=== PATIENT | male | born 1950 | race African-American/Black ===

== ENCOUNTER 2017-01-28 04:14 | Emergency (ER) | payer OTHER, MEDICAID ==
[~2017-01-28] VITALS: Ht 162.6 cm; Wt 78.0 kg
[2017-01-28 04:24] VITALS: BP 165/111
--- NOTE | 2017-01-28 04:28 | NUR ---
PT TAKEN TO BED 7
--- NOTE | 2017-01-28 04:35 | NUR ---
Dr. Pena evaluating patient at bedside.
[2017-01-28] MEDS ORDERED: INSULIN HUMAN REGULAR 100 UNITS/ML 10 ML VIAL IVP ONE (04:40)
[2017-01-28] MEDS ORDERED: NACL 0.9% 1,000 ML IV ONE (04:40)
[2017-01-28 04:57] LABS: BASOPHILS # (AUTO) 0.3 K/uL (0.00-0.22); BASOPHILS % (AUTO) 4.6 % (0.0-2.0); EOSINOPHILS # (AUTO) 0.3 K/uL (0-0.4); HEMATOCRIT 44.2 % (36-52); HEMOGLOBIN 14.3 g/dL (12.0-18.0); LYMPHOCYTES # (AUTO) 1.6 K/uL (2.0-11.5); LYMPHOCYTES % (AUTO) 29.7 % (20.5-51.1); MEAN CORPUSCULAR HEMOGLOBIN 29 pg (27-31); MEAN CORPUSCULAR HGB CONC 32 g/dL (33-37); MEAN CORPUSCULAR VOLUME 91 fL (80-94); MONOCYTES # (AUTO) 0.5 K/uL (0.8-1.0); MONOCYTES % (AUTO) 8.5 % (1.7-9.3); NEUTROPHILS # (AUTO) 2.8 K/uL (1.8-7.7); NEUTROPHILS % (AUTO) 52.2 % (42.2-75.2); PLATELET COUNT (AUTO) 336 K/uL (140-450); RED BLOOD CELL COUNT(AUTO) 4.86 MIL/uL (4.20-6.10); RED CELL DISTRIBUTION WIDTH 13.7 % (11.6-13.7); WHITE BLOOD COUNT (AUTO) 5.5 K/uL (4.8-10.8)
[2017-01-28 05:06] LABS: ACETONE, SERUM NEGATIVE (NEGATIVE)
[2017-01-28 05:15] LABS: ANION GAP 12.3 (8-16); ASPARTATE AMINOTRANSFERASE 21 U/L (15-37); CARBON DIOXIDE 30.4 mmol/L (21-32); CHLORIDE 103 mmol/L (98-107); CREATININE 1.2 mg/dL (0.7-1.3); GFR ARICAN-AMERICAN 78 mL/min (>90); GLUCOSE 296 mg/dL (74-106); POTASSIUM 4.7 mmol/L (3.5-5.1); SODIUM SERUM 141 mmol/L (136-145); TOTAL BILIRUBIN 0.3 mg/dL (0.0-1.0); UREA NITROGEN, BLOOD 15 mg/dL (7-18)
[2017-01-28 05:19] LABS: APPEARANCE,URINE CLEAR (CLEAR); BILIRUBIN,URINE NEGATIVE (NEGATIVE); BLOOD, URINE NEGATIVE (NEGATIVE); COLOR,URINE YELLOW (YELLOW); LEUKOCYTE ESTERASE ,URINE NEGATIVE (NEGATIVE); NITRITE, URINE NEGATIVE (NEGATIVE); UGLUCOSE 3+ (NEGATIVE)
--- NOTE | 2017-01-28 05:43 | NUR ---
66Y/M PT. BIBA TO ED WITH HIGH BS. HX. DM, POOR CONTROLLED. AAO X4, AMBULATORY WITH STEADY GAIT. REPSIRATIONS ROOM AIR, EVEN AND UNLABORED. VSS, NO S/SX OF DISTRESS NOTED. ER MD MADE AWARE OF PT. STATUS.
--- NOTE | 2017-01-28 05:45 | NUR ---
BS 75, MADE AWARE 1 APPLE JUICE GIVEN
[2017-01-28 06:14] LABS: RBC,URINE 0-5 (RARE) /HPF (0-5); WBC,URINE 0-5 (RARE) /HPF (0-5)
--- NOTE | 2017-01-28 06:19 | NUR ---
CAROL BS 99, DR. NAIR MADE AWARE, 1 ORENGE JUICE GIVEN.
--- NOTE | 2017-01-28 06:50 | NUR ---
Patient discharged with v/s stable. Written and verbal after care instructions given and explained. Patient verbalized understanding. Ambulatory with steady gait. All questions addressed prior to discharge. Advised to follow up with PMD.
[2017-01-28 06:51] VITALS: BP 158/99
== END 2017-01-28 06:50 | disposition home or self-care (01) ==
LOC: MED 04:14
DX: E11.9 Type 2 diabetes mellitus without complications (principal); F10.10 Alcohol abuse, uncomplicated; I10 Essential (primary) hypertension
CPT/HCPCS: 36415; 80053; 81001; 82009; 82948; 85025; 93005; 96361; 96374; 99285; J1815; J7030

== ENCOUNTER 2017-07-08 19:59 | Emergency (ER) | payer OTHER, MEDICAID ==
[~2017-07-08] VITALS: Ht 162.6 cm; Wt 79.8 kg
[2017-07-08 20:10] VITALS: BP 162/100
[2017-07-08] MEDS: NACL 0.9% 1,000 ML IV ONE (20:47)
[2017-07-08 21:00] LABS: BASOPHILS # (AUTO) 0.1 K/uL (0.00-0.22); EOSINOPHILS # (AUTO) 0.2 K/uL (0-0.4); EOSINOPHILS % (AUTO) 3.3 % (0.0-4.0); HEMATOCRIT 41.3 % (36-52); HEMOGLOBIN 13.9 g/dL (12.0-18.0); LYMPHOCYTES # (AUTO) 1.6 K/uL (2.0-11.5); LYMPHOCYTES % (AUTO) 27.2 % (20.5-51.1); MEAN CORPUSCULAR HEMOGLOBIN 31 pg (27-31); MEAN CORPUSCULAR HGB CONC 34 g/dL (33-37); MEAN CORPUSCULAR VOLUME 90.6 fL (80-94); MONOCYTES # (AUTO) 0.5 K/uL (0.8-1.0); MONOCYTES % (AUTO) 8.3 % (1.7-9.3); NEUTROPHILS # (AUTO) 3.6 K/uL (1.8-7.7); NEUTROPHILS % (AUTO) 60.2 % (42.2-75.2); PLATELET COUNT (AUTO) 305 K/uL (140-450); RED BLOOD CELL COUNT(AUTO) 4.56 MIL/uL (4.20-6.10); RED CELL DISTRIBUTION WIDTH 14.3 % (11.6-13.7)
[2017-07-08 21:18] LABS: ALBUMIN 4.3 g/dL (3.4-5.0); ANION GAP 13.6 (8-16); CARBON DIOXIDE 30.1 mmol/L (21-32); CREATININE 1.2 mg/dL (0.7-1.3); POTASSIUM 4.7 mmol/L (3.5-5.1); TOTAL BILIRUBIN 0.3 mg/dL (0.0-1.0)
[2017-07-08 21:43] VITALS: BP 138/87
== END 2017-07-08 21:43 | disposition home or self-care (01) ==
LOC: MED 19:59
DX: F15.10 Other stimulant abuse, uncomplicated (principal); E11.9 Type 2 diabetes mellitus without complications; I10 Essential (primary) hypertension
CPT/HCPCS: 36415; 80053; 85025; 96360; 99284; J7030

== ENCOUNTER 2019-06-23 12:14 | Emergency (ER) | payer OTHER, MEDICAID ==
[~2019-06-23] VITALS: Ht 162.6 cm; Wt 81.6 kg
[2019-06-23 12:18] VITALS: BP 134/87
--- NOTE | 2019-06-23 12:29 | NUR ---
DR HAMM EVALUATING PT AT BEDSIDE
--- NOTE | 2019-06-23 12:34 | NUR ---
68/M WITH HX OF DM, C/O SORE THROAT X 1 WEEK. DENIES COUGH, F/C, SOB. PAIN 08/04. STATES DYSPHAGIA EARLIER IN THE WEEK BUT PAIN/DISCOMFORT ACTUALLY DECREASING AND ONLY MILD DIFFICULTY WITH SWALLOWING NOW. PT SPEAKING IN FULL CLEAR SENTENCES, RESPIRATIONS EVEN AND UNLABORED, NAD. VSS. HX- DM
[2019-06-23 12:57] VITALS: BP 134/87
--- NOTE | 2019-06-23 12:57 | NUR ---
Patient discharged with v/s stable. Written and verbal after care instructions given and explained. Patient alert, oriented and verbalized understanding of instructions. Ambulatory with steady gait. All questions addressed prior to discharge. ID band removed. Patient advised to follow up with PMD. Rx of NYSTATIN given. Patient educated on indication of medication including possible reaction and side effects. Opportunity to ask questions provided and answered.
== END 2019-06-23 12:57 | disposition home or self-care (01) ==
LOC: MED 12:14
DX: K12.0 Recurrent oral aphthae (principal); B37.0 Candidal stomatitis; E11.9 Type 2 diabetes mellitus without complications; I10 Essential (primary) hypertension
CPT/HCPCS: 99283